=== PATIENT | male | born 1965 | race Caucasian/White ===

== ENCOUNTER 2024-03-04 10:18 | Emergency (ER) | payer BC ==
[2024-03-04 10:27] VITALS: BP 183/95; PULSE 72
== END 2024-03-04 11:35 | disposition home or self-care (01) ==
LOC: SUPCPDRO 10:18 → KA.ED 10:18
DX: S60.222A Contusion of left hand, initial encounter (principal); Z88.7 Allergy status to serum and vaccine; Z79.51 Long term (current) use of inhaled steroids; Z79.899 Other long term (current) drug therapy; Z79.82 Long term (current) use of aspirin; Z79.4 Long term (current) use of insulin; W20.8XXA Other cause of strike by thrown, projected or falling object, initial encounter; Y92.009 Unspecified place in unspecified non-institutional (private) residence as the place of occurrence of the external cause; Y93.89 Activity, other specified
CPT/HCPCS: 73130-LT; 99283